=== PATIENT | female | born 1985 | race Caucasian/White ===

== ENCOUNTER 2020-05-04 13:23 | Emergency (ER) | payer SELFPAY ==
[2020-05-04] MEDS ORDERED: NORMAL SALINE 1000 ML 1,000 ML IV ONE ×2 (13:45→16:20)
[2020-05-04] MEDS ORDERED: ONDANSETRON HCL INJ/PF 4 MG/2 ML SDV IV ONE (13:45)
--- NOTE | 2020-05-04 14:45 | ER Document Report ---
ED Flu Like - General Chief Complaint: Nausea/Vomiting Stated Complaint: FEVER/COUGH/CONGESTION Primary Care Provider: PAGE BARRIENTOS [Primary Care Provider] - Follow up as needed Notes: 35-year-old female presenting today with fevers, chills, cough, nausea, vomiting, diarrhea, loss of taste/smell for 6 days. Is coughing up phlegm. Has been unable to eat anything for approximately 6 days. Has attempted to keep water and Pedialyte down. Fevers at home have been 102. Last took Tylenol at 6:00 this morning. States that she is called EMS multiple times in the last few days. They told her that she has COVID-like symptoms and recommend she drink plenty of fluids and take Tylenol. Her mom is a nurse who recommends that she gets testing possible fluids for her symptoms. She denies any shortness of breath, abdominal pain or chest pain or urinary symptoms at this time - Related Data Allergies/Adverse Reactions: Penicillins Allergy (Severe, Verified 05/04/20 14:15) Anaphylaxis Past Medical History - Social History Smoking Status: Current Every Day Smoker Family History: Reviewed & Not Pertinent Review of Systems - Review of Systems Constitutional: See HPI EENT: See HPI Cardiovascular: No symptoms reported Respiratory: See HPI Gastrointestinal: See HPI Genitourinary: No symptoms reported Female Genitourinary: No symptoms reported Musculoskeletal: No symptoms reported Skin: No symptoms reported Hematologic/Lymphatic: No symptoms reported Neurological/Psychological: No symptoms reported Physical Exam - Vital signs Vitals: Temp Pulse Resp BP Pulse Ox 98.4 F 110 H 18 118/83 100 05/04/20 14:14 05/04/20 14:14 05/04/20 14:14 05/04/20 14:14 05/04/20 14:14 Interpretation: Tachycardic. No: Tachypneic, Febrile - Notes Notes: Adult General: GENERAL: Alert, interacts well. No acute distress HEAD: Normocephalic, atraumatic EYES: Injected bilaterally, Pupils equal, round and reactive to light. Extraocular movements intact. ENT: Oral mucosa dry, tongue midline. Oropharynx unremarkable. Airway patent. Nares patent. NECK: Full range of motion. Supple. Trachea midline. No lymphadenopathy. LUNGS: Clear to auscultation bilaterally, no wheezes, rales, or rhonchi. No respiratory distress. Nontender chest wall. HEART: Regular rate and rhythm. No murmurs, rubs or gallops. ABDOMEN: Soft, nontender. Nondistended. (-) [place] sign. Bowel sounds present in all 4 quadrants. No rebound, guarding or masses. GENITOURINARY: Deferred EXTREMITIES: Moves all 4 extremities spontaneously. BACK: Moves all extremities with full range of motion. NEUROLOGICAL: Alert and oriented x3. Normal speech. Cranial nerves II through XII grossly intact. Strength 5/ 5 in all extremities. PSYCH: Normal affect, normal mood. SKIN: Warm, dry, normal turgor. No rashes or lesions noted. Course - Re-evaluation Re-evalutation: 05/04/20 15:02 I ordered patient fluids and pain medication. She is afebrile and tachycardic. Last dose of Tylenol was this morning. Labs have been ordered to evaluate for any electrolyte derangements. Pending labs and x-rays. She is not confused, no altered mental status. Does not drink alcohol. Is not on any medications at th is time. No IV drug use. Patient does not live alone. 05/04/20 17:21 Patient's sodium is 124.3. Her platelets are 55. Her white count is 3.3 and her neutrophils are 1.3. I discussed the case with Dr. Chawla. After reveiw of the labs, suspect her symptoms are due to a viral illness and dehydration. If patient is able to keep oral fluids and food down, recommend discharging the patient with strick return precautions. Dr. Chawla also recommends decreasing dose of rate of saline to 125 mls/hr. Would also recommend having patient repeat labs in 2-3 days. Patient was given phenergan and benadryl. States she is no longer nauseated. Has been able to eat saline crackers, drink water and pepsi. I discussed with patient her lab findings and concerns of having hyponatremia. I recommend patient drinks gatorade and pedialyte and eat foods higher in sodium. Also discussed repeat labs in 2-3 days. I will go ahead and discharge the patient with strict return precautions to include worsening symptoms or the development of new symptoms. This includes inability to keep food and fluids down or feeling lethargic. She has also been tested for covid. Patient was advised on quarantine until results return. Patient agrees with plan and acknowledges understanding of instructions. All questions answered. - Vital Signs Vital signs: Temp Pulse Resp BP Pulse Ox 99.2 F 100 18 110/76 99 05/04/20 19:04 05/04/20 16:15 05/04/20 14:14 05/04/20 16:15 05/04/20 16:15 - Laboratory Result Diagrams: 05/04/20 15:09 05/04/20 15:09 Laboratory results interpreted by me: 05/04/20 05/04/20 05/04/20 14:21 15:09 15:09 WBC 3.3 L RDW 14.1 H Plt Count 55 L [place] % (Auto) 17.2 H Absolute Neuts (auto) 1.3 L Seg Neutrophils % 40.8 L Sodium 124.3 L Chloride 82 L Creatinine 0.46 L Total Bilirubin 1.4 H Direct Bilirubin 0.8 H AST 300 H ALT 186 H Urine Protein 30 H Urine Ketones 80 H Urine Urobilinogen 4.0 H Discharge - Discharge Clinical Impression: Person under investigation for COVID-19, Hyponatremia Condition: Stable Disposition: HOME, SELF-CARE Instructions: COVID-19 Guidance for Persons Under Investigation, Hyponatremia (OM) Additional Instructions: You are a person under investigation for covid. Your labs also show that you are hyponatremic at this time. Also shows you have a low white count. I recom mend that you have repeat labs drawn in 2 to 3 days and follow up with your primary care provider. I also recommend that you drink gatorade and pedialyte and I recommend eating foods higher in sodium to increase your sodium. I have prescribed you a medication to help alleviate your nausea to help you eat. If you are unable to eat or drink or develop new or worsening symptoms please return to the emergency department immediately. Continue to use Tylenol and ibuprofen for fever. Prescriptions: Promethazine HCl [Phenergan 25 Mg Supp.Rect #4 (Er Disp)] 25 mg NC Q4H PRN #4 supp.rect PRN Reason: Promethazine HCl [Phenergan 25 mg Supp.rect] 1 supp NC Q6H #12 supp.rect Forms: Return to Work Referrals: LOCALMD,NO [Primary Care Provider] - Follow up as needed
[2020-05-04 15:03] LABS: APPEARANCE,URINE SLIGHTLY-CLOUDY; BILIRUBIN,URINE NEGATIVE (NEGATIVE); COLOR,URINE AMBER; GLUCOSE, URINE NEGATIVE (NEGATIVE); KETONES,URINE 80 mg/dL (NEGATIVE); LEUKOCYTE ESTERASE,URINE NEGATIVE (NEGATIVE); NITRITE,URINE NEGATIVE (NEGATIVE); PROTEIN,URINE 30 mg/dL (NEGATIVE); URINE SPECIFIC GRAVITY 1.016
--- NOTE | 2020-05-04 15:31 | RADIOLOGY REPORT (SQ) ---
EXAM DESCRIPTION: CHEST SINGLE VIEW IMAGES COMPLETED DATE/TIME: 05/04/2020 3:17 pm REASON FOR STUDY: cough COMPARISON: None. EXAM PARAMETERS: NUMBER OF VIEWS: One view. TECHNIQUE: Single frontal radiographic view of the chest acquired. RADIATION DOSE: NA LIMITATIONS: None. FINDINGS: LUNGS AND PLEURA: No opacities, masses or pneumothorax. No pleural effusion. MEDIASTINUM AND HILAR STRUCTURES: No masses. Contour normal. HEART AND VASCULAR STRUCTURES: Heart normal in size. Normal vasculature. BONES: No acute findings. HARDWARE: None in the chest. OTHER: No other significant finding. IMPRESSION: No focal consolidation or other evidence of acute intrathoracic process. TECHNICAL DOCUMENTATION: JOB ID: [id number] 2010 [employer]- All Rights Reserved Reading location - IP/workstation name: [email or web address]
[2020-05-04 15:43] LABS: ABSOLUTE LYMPHOCYTES (AUTO) 1.3 10^3/uL (0.5-4.7); ABSOLUTE MONOCYTES (AUTO) 0.6 10^3/uL (0.1-1.4); ABSOLUTE NEUT (AUTO) 1.3 10^3/uL (1.7-8.2); BASOPHILS % (AUTO) 1.4 % (0-2); EOSINOPHILS % (AUTO) 0.6 % (0-6); HEMATOCRIT 43.1 % (36.0-47.0); HEMOGLOBIN 14.9 g/dL (12.0-15.5); MEAN CORPUSCULAR HEMOGLOBIN 32.9 pg (27.0-33.4); MEAN CORPUSCULAR HGB CONC 34.6 g/dL (32.0-36.0); MEAN CORPUSCULAR VOLUME 95 fl (80-97); MONOCYTES % (AUTO) 17.2 % (3-13); RED BLOOD COUNT 4.54 10^6/uL (3.72-5.28); RED CELL DISTRIBUTION WIDTH 14.1 % (11.5-14.0); SEGMENTED NEUTROPHILS % (AUTO) 40.8 % (42-78); TOTAL CELLS COUNTED % (AUTO) 100 %; WHITE BLOOD COUNT 3.3 10^3/uL (4.0-10.5)
[2020-05-04 15:53] LABS: ALKALINE PHOSPHATASE 99 U/L (38-126); ASPARTATE AMINO TRANSFERASE 300 U/L (14-36); BILIRUBIN,DIRECT 0.8 mg/dL (0.0-0.4); BILIRUBIN,TOTAL 1.4 mg/dL (0.2-1.3); BLOOD UREA NITROGEN 11 mg/dL (7-20); CALCIUM 8.9 mg/dL (8.4-10.2); GLUCOSE 78 mg/dL (75-110); POTASSIUM 3.6 mmol/L (3.6-5.0); TOTAL PROTEIN 6.5 g/dL (6.3-8.2)
[2020-05-04 15:56] LABS: CARBON DIOXIDE 23 mmol/L (22-30)
[2020-05-04 16:08] LABS: PLATELET COUNT 55 10^3/uL (150-450)
[2020-05-04 16:08] LABS: A TYPE INFLUENZA AG NEGATIVE (NEGATIVE); B INFLUENZA AG NEGATIVE (NEGATIVE)
[2020-05-04 16:20] VITALS: BP 110/76
[2020-05-04] MEDS ORDERED: ACETAMINOPHEN 325 MG TABLET PO ONE (16:20)
[2020-05-04 16:35] LABS: ANION GAP 19 (5-19); CHLORIDE 82 mmol/L (98-107)
[2020-05-04] MEDS ORDERED: PROMETHAZINE HCL INJ 25 MG/1 ML VIAL IM ONE (17:20)
[2020-05-04] MEDS ORDERED: DIPHENHYDRAMINE HCL 50 MG/ML VIAL IV ONE (17:21)
[2020-05-04] MEDS ORDERED: PROMETHAZINE HCL 25 MG SUPP (4 SUPP/ER DISP) PR ONE (18:46)
== END 2020-05-04 19:17 | disposition home or self-care (01) ==
LOC: ER 13:23
DX: R11.2 Nausea with vomiting, unspecified (principal); R05 Cough; R19.7 Diarrhea, unspecified; R43.8 Other disturbances of smell and taste; R00.0 Tachycardia, unspecified; E87.1 Hypo-osmolality and hyponatremia; F17.200 Nicotine dependence, unspecified, uncomplicated; Z87.892 Personal history of anaphylaxis; Z88.0 Allergy status to penicillin; Z20.828 Contact with and (suspected) exposure to other viral communicable diseases
CPT/HCPCS: 99284; 96372; 96361; 96374; 96375; 36415; 83935; 85025; 87635; 80053; 81001; 87804; 71045; J1200; J3490; J2550; J2405; J7030; C9803